=== PATIENT | female | born 1960 | race Caucasian/White ===

== ENCOUNTER 2025-03-13 14:26 | Outpatient (AMB) | payer BC, SELFPAY ==
--- NOTE | 2025-03-13 14:51 | MHC.OFFVIS ---
Vital Signs 03/13/25 14:54 Height 5 ft 8 in Weight 185 lb 3.013 oz BMI 28.2 BP 124/68 Blood Pressure Location Lt brachial Position Sitting Pulse 75 Pulse Source Pulse Oximeter Intake Visit Reasons: [employer]/[facility] ED fu/ family hx heart dz/cp Allergies nitrofurantoin Allergy (Severe, Verified 03/13/25 14:58) sepsis Medication List - Last Reconciled 03/13/25 by Adi Ruzi MD No Known Home Meds HPI Comments Details: Kayla is here for consultation regarding evaluation of chest pain. She apparently does a lot of kayaking and after a recent session, she was having chest discomfort. That led to ER visit at [facility]. She had troponins checked which were unremarkable and she was sent home. She has not had any further episodes. In fact, she has been doing a lot of physical exertion and still did not have any recurrence of the same. Otherwise, has no history of any coronary disease or myocardial infarction or cardiomyopathy. She is known to have high lipids in the last LDL was as much as 17qmg/dL but not on statins. There is also family history of coronary disease and her older sister who is 70 years old had a coronary stent. Hence patient is concerned and would like to get checked out for any coronary disease. Otherwise, she is very active with kayaking and also previously playing volleyball. She never had any issues with that. There is also history of low blood pressure at different times. During recent visit to physical therapy office, pressures apparently in the 80s but today's blood pressure seems normal. [facility] Medical History (Updated 03/13/25 @ 15:33 by Adi Ruiz MD) Aortitis Kidney stones Surgical History (Updated 03/13/25 @ 14:59 by Lynette Garcias) H/O knee surgery History of hip surgery Family History (Updated 03/13/25 @ 15:34 by Adi Ruiz MD) Mother Heart attack Father Heart attack Sister CAD (coronary artery disease) Social History (Updated 03/13/25 @ 15:01 by Lynette Garcias) Alcohol intake: current Alcohol intake frequency: a few times a month Patient Tobacco Use Status: Never used Tobacco Review of Systems Const Denies weakness ENT Denies dizziness Card Reports chest pain, Denies chest pain with activity, Denies syncope, Denies rapid heart rate, Denies pedal edema, Denies edema, Denies leg edema, Reports lightheadedness, Reports palpitations, Reports dyspnea, Denies dyspnea on exertion and Denies orthopnea Resp Denies cough, Reports dyspnea and Denies dyspnea on exertion GI Denies hematochezia and Denies change in stool character Musc Denies abnormal gait, Denies muscle cramps, Denies muscle weakness, Denies numbness, Denies radiating pain into limb and Denies tingling Neuro Denies abnormal gait, Denies dizziness, Denies syncope, Denies numbness, Denies tingling and Denies weakness Endo Reports palpitations Physical Exam Vital Signs: Last Vital Signs Pulse 75 03/13/25 14:54 BP 124/68 03/13/25 14:54 BMI result Body Mass Index 28.2 Const General: comfortable and no acute distress Orientation/consciousness: patient oriented x3 HEENT Other: Unremarkable Head: Yes normal to inspection Neck Neck: Yes normal visual inspection Chest Chest palpation & inspection: normal inspection of the chest Resp Auscultation: clear to auscultation bilaterally Cardio Palpation: normal PMI Heart sounds: S1 normal heart sound present, S2 normal heart sound present, no gallops, no murmurs and no rubs GI Palpation (GI): Soft to palpation Back/Spine/Pelvis Other: unremarkable Skin General skin exam: no rashes or lesions noted Neuro General: patient oriented x3 Extrem General: Yes normal to inspection Psych Mental Status: mental status grossly normal Assessment & Plan Assessment & Plan (1) Precordial chest pain: Code(s): R07.2 - Precordial pain Category: Medical Plan: From the recent [facility] EKG, underlying rhythm is sinus at 56/Min. Incomplete right bundle-branch block pattern with subtle T inversions in the anterior leads. Otherwise, no overt ischemic changes and normal UT and corrected QT. Initial episode of chest discomfort was after Kayaking but subsequently physically quite active with no recurrence of discomfort. Hence sounds somewhat atypical. Considering history of high LDL as well as family history, we will do a comprehensive workup with an echocardiogram and coronary CTA. She agrees with this. Avoid any strenuous physical activity in the interim. Also if any recurrence of pain from now till the testing is completed, to seek immediate care. She understands this. (2) Hypotension: Code(s): I95.9 - Hypotension, unspecified Category: Medical Plan: Reported low blood pressure in the past but seems normal today. No specific interventions at this time. We will monitor. (3) Hyperlipidemia, unspecified: Code(s): E78.5 - Hyperlipidemia, unspecified Category: Medical Plan: Per patient, previously LDL was 170 mg/dL. She showed a prior result on her phone. We will recheck this. Suspect she is going to need statins. Plan Discussion Notes I discussed with the patient the importance of further cardiovascular evaluation given her symptoms and family history. We agreed on performing an echocardiogram and CT coronary angiography to assess her cardiac status. I also recommended a repeat lipid panel to evaluate her current cholesterol levels and determine the need for statin therapy. Patient was informed and verbally consented to the use of an ambient scribe for clinic note documentation during this visit. Orders: Orders CA echo transthoracic complete Today R07.2 - Precordial pain CT Cardiac Coronary Angio Today I25.10 - Atherosclerotic heart disease of [place] coronary artery without angina pectoris, R07.2 - Precordial pain Lipid Panel Today E78.5 - Hyperlipidemia, unspecified Liver Panel Today I25.10 - Atherosclerotic heart disease of [place] coronary artery without angina pectoris Basic Metabolic Panel Today R07.2 - Precordial pain Patient Instructions: - Schedule and complete the echocardiogram and CT coronary angiography as advised. - Undergo a fasting lipid panel to assess cholesterol levels. - Avoid strenuous physical activities until further evaluation is completed. - Contact the clinic or seek emergency care if experiencing any new or worsening symptoms. Coding Level of Care Code New Pt Level 4 (12841) Complex EM visit Add On G2211 Diagnoses Precordial chest pain R07.2 Hypotension I95.9 Hyperlipidemia, unspecified E78.5
[2025-03-13 14:54] VITALS: BP 124/68; PULSE 75; BMI 28.2
== END 2025-03-13 15:38 | disposition home or self-care (01) ==
LOC: HO.HCS 14:26
PROVIDERS: Visit Provider Internal Medicine
DX: R07.2 Precordial pain (principal); I95.9 Hypotension, unspecified; E78.5 Hyperlipidemia, unspecified
CPT/HCPCS: 99204

== ENCOUNTER 2025-04-11 07:02 | Outpatient (REF) | payer BC, SELFPAY ==
--- OUTSIDE RECORDS SUMMARY | 2025-04-11 07:06 | XMS_ITS | Clinical Summary ---
Author Organization [facility] Address [address] [place] [phone] Phone Care Team Providers Care Retanned Leather Roller Name Role Phone Unknown, Unknown Primary Care Provider Unavai lable Allergies Active Allergy Reactions Criticality Noted Date Comments Moxifloxacin 02/09/2024 Nitrofurantoin Monohyd/M-Cryst Palpitations Low 10/2023 Medications No known medications Active Problems No known active problems Social History Tobacco Use Types Packs/Day Years Used Date Smoking Tobacco: Never Smokeless Tobacco: Never Education Answer Date Recorded Are you interested in more education? Not on tatyana e 02/09/2024 Are you concerned about learning? Not on file 02/09/2024 No 02/09/2024 No 02/09/2024 Digital Access Answer Date Recorded No 02/09/2024 No 02/09/2024 Reliable internet access at home? Not on file 02/09/2024 Device with a working camera? Not on file Comments Unknown Sex and Gender Information Value Date Recorded Sex Assigned at Not on file Legal Sex Female 1:50 PM EDT Gender Identity Not on file Sexual Orientation Not on file Last Filed Vital Signs Vital Sign Reading Time Taken Comments Blood Pressure 144/82 02/16/2024 2:53 PM EDT Pulse 60 02/16/2024 2:53 PM EDT Temperature 37.1 C (98.7 F) 02/16/2024 2:53 PM EDT Respiratory Rate 16 02/16/2024 2:53 PM EDT Oxygen Saturation 98% 02/16/2024 2:53 PM EDT Inhaled Oxygen Concentration - - Weight 82.1 kg (181 lb) 02/16/2024 2:53 PM EDT Height 172.7 cm (5' 8 ) 02/16/2024 2:53 PM EDT Body Mass Index 27.52 02/16/2024 2:53 PM EDT Plan of Treatment Upcoming Encounters Date Type Department Care Team (Late st Contact Info) Description 10/16/2024 Procedure Pass [address] [place] [address] 05/01/2025 8:45 AM EST Appointment [address] [place] [address] Phs Mammo Self, Referral 06/20/2025 1:20 PM EST Office Visit [facility] Internal Medicine [address] [place] [address] Sherley Tierney PA-C [address] [place] [address] [email or web address] Health Maintenance Due Date Last Done Comments Adult Td,Tdap Booster 1960 LIPID PANEL 1960 DEPRESSION SCREENING 1974 HEPATITIS C SCREENING 1980 HIV ONE-TIME SCREENING (18-6 5 YEARS) 1980 PAP SMEAR 1983 SCREENING FOR DIABETES 1997 MAMMOGRAM 2002 COLOGUARD 2007 COLONOSCOPY 2007 COLORECTAL CANCER SCREENING 2007 FIT TEST 2007 FOBT 2007 SIGMOIDOSCOPY 2007 VIRTUAL COLONOSCOPY 2007 PNEUMOCOCCAL VACCINES (50+ y ears) (1 of 1 - PCV) 2012 ZOSTER VACCINES (1 of 2) 2012 INFLUENZA VACCINE (#1) 2025 COVID-19 VACCINE ( - 2024-2 6 season) 2025 RSV VACCINE (1 - 1-dose 75+ series) 2037 SMOKING STATUS SCREENING (On ce After 26 Yrs) Completed 02/16/2024 HEPATITIS A VACCINES Aged Out No long er eligible based on patient's age to complete this topic HIB VACCINES Aged Out No longer eligi ble based on patient's age to complete this topic MENINGOCOCCAL VACCINES (ACWY) Aged Out No longer eligible based on patient's age to complete this topic MENINGOCOCCAL VACCINES (B) Aged Out N o longer eligible based on patient's age to complete this topic Medical Devices Not on file Insurance BLUE CROSS OUT OF STATE PPO BLUE CROSS OUT OF STATE PPO BLUE [employer]OSS OUT OF STATE PPO BLUE [employer]OSS OUT OF STATE PPO BLUE [employer]OSS OUT OF STATE PPO BL[employer] OUT OF STATE PPO Care Teams Retanned Leather Roller Relationship Specialty Start Date End Date Unknown, Unknown, PCP - General 02/16/24 Additional Source Comments The information contained in this document represents components of the legal health record. It is not the complete legal health record.[facility]
[2025-04-11 10:36] LABS: Alanine Aminotransferase 52 U/L (0-31); Albumin Level 4.7 g/dL (3.5-5.0); Alkaline Phosphatase 66 U/L (39-117); Anion Gap 12 (12-20); Aspartate Amino Transferase 56 U/L (5-31); Blood Urea Nitrogen 17 mg/dL (9-16); Calcium 9.5 mg/dL (8.4-10.2); Carbon Dioxide 24 mmol/L (22-29); Chloride 110 mmol/L (96-108); Cholesterol 234 mg/dL (<200); Estimated Glomerular Filt Rate > 60; HDL Cholesterol 63 mg/dL (>40); Potassium 4.2 mmol/L (3.3-5.1); Sodium 142 mmol/L (135-145); Total Protein 7.1 g/dL (6.5-8.0); Triglycerides 50 mg/dL (<150)
== END 2025-04-11 07:03 | disposition home or self-care (01) ==
LOC: HO.HMGCLDS 07:02
PROVIDERS: Visit Provider Internal Medicine
DX: I25.10 Atherosclerotic heart disease of native coronary artery without angina pectoris (principal); E78.5 Hyperlipidemia, unspecified; R07.2 Precordial pain
CPT/HCPCS: 36415; 80048; 80061; 80076

== ENCOUNTER → 2025-05-07 07:40 | Outpatient (REF) | payer BC, SELFPAY ==
--- OUTSIDE RECORDS SUMMARY | 2025-05-01 08:19 | XMS_ITS | Encounter Summary ---
Author Organization [facility] Address [address] [place] [address] [place] [phone] Phone Care Team Providers Care Supervisor Contact Lens Name Role Phone Unknown, Unknown MD Primary Care Provider Ramesh torres Encounter Details Date Type Department Care Team (Latest Contact Info) Description 05/01/2025 8:19 AM EST - 05/01/2025 11:59 PM [facility] Hospital Encounter [facility] - [address] [place] [address] Phs Mammo Self, Referral Discharge Disposition: Home or Self Care Social History Tobacco Use Types Packs/Day Years Used Date Smoking Tobacco: Never Smokeless Tobacco: Never Tobacco Cessation:Counseling Given: Not Answered Alcohol Use Standard Drinks/Week Comments Yes 0 (1 standard drink = 0.6 oz pure alcohol) Occasional glass of wine or cocktail Education Answer Date Recorded Are you interested in more education? Not on tatyana e 02/09/2024 Are you concerned about learning? Not on file 02/09/2024 No 02/09/2024 No 02/09/2024 Digital Access Answer Date Recorded No 02/09/2024 No 02/09/2024 Reliable internet access at home? Not on file 02/09/2024 Device with a working camera? Not on file Comments No Sex and Gender Information Value Date Recorded Sex Assigned at Not on file Legal Sex Female 1:50 PM EDT Gender Identity Not on file Sexual Orientation Not on file documented as of this encounter Plan of Treatment Upcoming Encounters Date Type Department Care Team (Late st Contact Info) Description 06/20/2025 1:20 PM EST Office Visit [facility] [place] Internal Medicine [address] [place] [address] Sherley Tierney PA-C [address] [place] [address] [email or web address] documented as of this encounter Procedures Procedure Name Priority Date/Time Associated Diagnosis Comments BI MAMMOGRAM SCREENING WITH TOMOSYNTHESIS WITH CAD (BILATERAL) Routine 05/01/2025 8:37 AM EST Visit for screening mammogram documented in this encounter Results * BI MAMMOGRAM SCREENING WITH TOMOSYNTHESIS WITH CAD (BILATERAL) (05/01/2025 8:37 AM EST) Anatomical Region Laterality Modality Breast Left, Breast Right, Breast Bilateral Bila teral Mammography 05/01/2025 10:0 0 AM EST Impressions 05/01/2025 10:01 AM EST No mammographic evidence of malignancy in either breast. Annual screening mammography is recommended. BI-RADS 1 NEGATIVE The patient will be notified of the results and recommendations. Narrative 05/01/2025 10:01 AM EST BI MAMMOGRAM SCREENING WITH TOMOSYNTHESIS WITH CAD (BILATERAL) Additional patient information: Screening. COMPARISON: Comparison is made with relevant prior imaging. Breast composition: There are scattered areas of fibroglandular density. FINDINGS: There has been no change in the mammographic findings since previous examination. No abnormal masses, suspicious calcifications, or other significant findings are identified mammographically in either breast. us Referral Phs Mammo Self IMG MG EXAMS Final Re sult documented in this encounter Visit Diagnoses Diagnosis Visit for screening mammogram documented in this encounter Care Teams Supervisor Contact Lens Relationship Specialty Start Date End Date Unknown, Unknown, PCP - General 02/16/24 documented as of this encounter Additional Source Comments The information contained in this document represents components of the legal health record. It is not the complete legal health record.[facility]
--- NOTE | 2025-05-07 07:44 | CA_ITS ---
Transthoracic Echocardiogram Patient (Last, First, Middle): Kayla Ray, Gender: F Date of : 1960 Age: 65 Procedure Date: 05/07/2025 Procedure Type: Transthoracic Echocardiogram Location: OP Height: 172.72 cm Weight: 83.92 kg BSA: 1.98 m2 Heart Rate: bpm BP: 124 / 68 mmHg Java [email or web address] Architect: MARCI Referring MD: Adi Ruiz MD Symptoms: R07.2 - Precordial pain Study Quality: Adequate ECG Rhythm: Sinus Conclusions: - The left ventricular systolic function is normal. The calculated ejection fraction is 60% by biplane method. - No obvious valvular pathology seen on this study. Findings Left Ventricle Normal left ventricular cavity size. There is normal left ventricular wall thickness. The left ventricular systolic function is normal. The calculated ejection fraction is 60% by biplane method. There is no evidence of regional wall motion abnormalities. Diastolic function is normal for age. Right Ventricle Normal right ventricular cavity size. There is low normal right ventricular systolic function. Atria Both atria are normal in size. Aortic Valve There is a normal trileaflet aortic valve. There is no aortic valve stenosis. There is no aortic valve regurgitation. Mitral Valve The mitral valve appears normal. There is no mitral valve regurgitation. There is no mitral valve stenosis. Pulmonic Valve The pulmonic valve is likely normal. Tricuspid Valve There is mild tricuspid valve regurgitation. There is no evidence of pulmonary hypertension. Great Vessels The asc aorta and aortic arch are normal in size. Venous The inferior vena cava is normal in size and collapses greater than 50% with inspiration. Pericardium/Pleural There is no evidence of pericardial effusion. Prior Study Comparison No prior study available for comparison. Recommendations, Care & Conclusions No obvious valvular pathology seen on this study. Measurements 2D Linear Measurements IVSd: 0.91 0.6-0.9/0.6-1.0 cm LVIDd: 4.74 3.9-5.3/4.2-5.9 cm LVIDd Index: 2.39 2.4-3.2/2.2-3.1 cm/m2 LVIDs: 3.33 2.0-3.6 cm LVPWd: 0.94 0.7-1.1 cm LA Diam: 3.90 2.7-3.8/3.0-4.0 cm LAIDs Index: 1.97 1.5-2.3 cm/m2 LV Mass: 185.53 67-162/88-224 g LV Mass Index: 93.70 43-95/49-115 g/m2 LVOT Diam: 2.00 3.0+(-)1.3 cm 2D Systolic Function EF 4C: 59.60 >55% EF 2C: 62.40 >55% EF BiP: 59.90 >55% Mitral Valve MV Pk E: 0.79 MV PK A: 0.42 MV Decel Time: 242.00 E/A: 1.90 E'Lateral: 8.16 E'Medial: 6.64 E/E' Med: 11.90 E/E' Lat: 9.70 PHT: 71.00 MVA PHT: 3.10 [place]: 3.26 Aortic Valve AoV Pk Tom: 1.25 AoV Mn Tom: 0.93 AoV VTI: 0.33 AoV Pk Grad: 6.00 Aov Mn Grad: 4.00 DURGA Cont.VTI: 2.12 LVOT LVOT Pk Tom: 0.94 LVOT Mn Tom: 0.66 LVOT VTI: 0.22 LVOT Pk Grad: 4.00 LVOT Mn Grad: 2.00 LVOT Diam: 2.00 LVOT Area: 3.14 Diastolic Function MV Pk E: 0.79 MV Pk A: 0.42 E/A: 1.90 E'Medial: 6.64 E/E' Med: 11.90 E' Laterial: 8.16 E/E' Lat: 9.70 Right Ventricle TAPSE (mm): 21.70 TVS' Tom: 9.90 Tricuspid Valve TR Pk Tom: 2.16 TR Pk Grad: 19.00 RA Press: 3.00 RVSP: 22.00 Great Vessels Aorta Sinus of Valsalva: 2.91 2.0-3.[address] Ridge: 2.54 1.7-3.4 cm Ao Asc: 2.80 2.1-3.4 cm Ao Arch: 2.80 Pulmonary Veins Pulm Vein S/D 1.40 Updated in Other Vendor System with Status of Final Adi Ruiz MD electronically signed on 05/08/2025 4:21:38 PM with status of Final
--- OUTSIDE RECORDS SUMMARY | 2025-05-07 07:46 | XMS_ITS | Clinical Summary ---
Author Organization [facility] Address [address] [place] [address] [place] [phone] Phone Care Team Providers Care Therapist'S Assistant Name Role Phone Unknown, Unknown Primary Care Provider Ramesh lable Allergies Active Allergy Reactions Criticality Noted Date Comments Moxifloxacin 02/09/2024 Nitrofurantoin Monohyd/M-Cryst Palpitations Low 10/2023 Medications No known medications Active Problems No known active problems Encounters Date Type Department Care Team Description 05/01/2025 8:19 AM EST - 05/01/2025 11:59 PM [facility] Hospital Encounter [facility] - [address] [place] [address] Phs Mammo Self, Referral Discharge Disposition: Home or Self Care 04/11/2025 Ancillary Orders [facility] [address] [place] [address] Zahida, MD Zahida 04/11/2025 Ancillary Orders [facility] [address] [place] [address] Zahida, MD Zahida 04/11/2025 Ancillary Orders [facility] [address] [place] [address] Zahida Teague MD 04/11/2025 Ancillary Orders [facility] [address] [place] [address] Zahida Teague MD 04/11/2025 Ancillary Orders [facility] [address] [place] [address] Unknown, MD Zahida 10/16/2024 Procedure Pass [facility] - [address] [place] [address] from Last 3 Months Family History Medical History Relation Comments Breast cancer Father Breast cancer Sister Relation Status Comments Father Alive Sister Alive Social History Tobacco Use Types Packs/Day Years [...] Description 06/20/2025 1:20 PM EST Office Visit [facility] Internal Medicine [address] [place] [address] Sherley Tierney PA-C [address] [place] [address] [email or web address] Health Maintenance Due Date Last Done Comments Adult Td,Tdap Booster 1960 LIPID PANEL 1960 DEPRESSION SCREENING 1974 HEPATITIS C SCREENING 1980 HIV ONE-TIME SCREENING (18-65 YEARS) 1980 PAP SMEAR 1983 SCREENING FOR DIABETES 1997 COLOGUARD 2007 COLONOSCOPY 2007 COLORECTAL CANCER SCREENING 2007 FIT TEST 2007 FOBT 2007 SIGMOIDOSCOPY 2007 VIRTUAL COLONOSCOPY 2007 PNEUMOCOCCAL VACCINES (50+ years) (1 of 1 - PCV) 2012 ZOSTER VACCINES (1 of 2) 2012 INFLUENZA VACCINE (#1) 2025 COVID-19 VACCINE ( - season) 2025 MAMMOGRAM 05/01/2027 05/01/2025, 11/04, 10/25/2022, Additional history exists RSV VACCINE (1 - 1-dose 75+ series) 2037 SMOKING STATUS SCREENING (Once After 26 Yrs) Completed 05/01/2025 HEPATITIS A VACCINES Aged Out No long [...] this topic Medical Devices Not on file Procedures Procedure Name Priority Date/Time Associated Diagnosis Comments BI MAMMOGRAM SCREENING WITH TOMOSYNTHESIS WITH CAD (BILATERAL) Routine 05/01/2025 8:37 AM EST Visit for screening mammogram from Last 3 Months Results * BI MAMMOGRAM SCREENING WITH TOMOSYNTHESIS [...] identified mammographically in either breast. us Referral [facility] Mammo Self IMG MG EXAMS Final Re sult from Last 3 Months Insurance [facility] OUT OF [facility] PPO [facility] OUT [facility] PPO BLUE CROSS OUT OF STATE PPO BLUE CROSS OUT OF STATE PPO BLUE CROSS OUT OF STATE PPO BLUE [place] OUT OF STATE PPO Care Teams Therapist'S Assistant Relationship Specialty Start Date End Date Unknown, Unknown, PCP - General 02/16/24 Additional Source Comments The information contained in this document represents components of the legal health record. It is not the complete legal health record.[facility]
--- OUTSIDE RECORDS SUMMARY | 2025-05-07 07:46 | XMS_ITS | Encounter Summary ---
Author Organization [facility] Address [address] [place] [address] [place] [phone] Phone Care Team Providers Care Wrapper Leaf Inspector Name Role Phone Unknown, Unknown MD Primary Care Provider Ramesh torres Encounter Details Date Type Department Care Team (Late st Contact Info) Description 10/16/2024 Procedure Pass [facility] - [address] [place] [address] Social History Tobacco Use Types Packs/Day Years Used Date Smoking Tobacco: Never Smokeless Tobacco: Never Alcohol Use Standard Drinks/Week Comments Yes 0 [...] Description 06/20/2025 1:20 PM EST Office Visit [facility] Internal Medicine [address] [facility] [place] [address] Sherley Tierney PA-C [address] [place] [address] [email or web address] documented as of this encounter Visit Diagnoses Not on filedocumented in this encounter Care Teams Wrapper Leaf Inspector Relationship Specialty Start Date End Date Unknown, Unknown, PCP - General 02/16/24 documented as of this encounter Additional Source Comments The information contained in this document represents components of the legal health record. It is not the complete legal health record.[facility]
== END ==
LOC: HO.CARD 07:40
PROVIDERS: Visit Provider Internal Medicine
DX: R07.2 Precordial pain (principal)
CPT/HCPCS: 93306

== ENCOUNTER → 2025-05-07 07:44 | Outpatient (BNV) | payer BC, SELFPAY | PROVIDERS: Visit Provider Internal Medicine | DX: R07.2 Precordial pain (principal); I36.1 Nonrheumatic tricuspid (valve) insufficiency | CPT/HCPCS: 93306 ==